=== PATIENT | male | born 1970 | race Caucasian/White ===

== ENCOUNTER 2023-02-19 07:35 | Day surgery (SDC) | payer OTHER ==
[~2023-02-19] VITALS: Ht 175.3 cm; Wt 79.4 kg
[2023-02-19] MEDS ORDERED: ONDANSETRON 4 MG/2 ML VIAL ONE (08:00)
[2023-02-19] MEDS ORDERED: PROPOFOL 200 MG/20 ML VIAL IV ONE (08:00)
[2023-02-19] MEDS ORDERED: MIDAZOLAM 2 MG/2 ML VIAL ONE ×2 (08:00→08:51)
[2023-02-19] MEDS ORDERED: METOCLOPRAMIDE 10 MG/2 ML INJ VIAL ONE (08:00)
[2023-02-19] MEDS ORDERED: fentaNYL citrate 0.05 MG/ML - 50mL vial IV ONE (08:00)
[2023-02-19 08:26] LABS: BASOPHILS % (AUTO) 0.6 % (0.0-2.0); EOSINOPHILS # (AUTO) 0.4 K/uL (0-0.4); EOSINOPHILS % (AUTO) 9.3 % (0.0-4.0); HEMATOCRIT 41.2 % (36-52); HEMOGLOBIN 14.1 g/dL (12.0-18.0); LYMPHOCYTES # (AUTO) 1.1 K/uL (2.0-11.5); LYMPHOCYTES % (AUTO) 26.8 % (20.5-51.1); MEAN CORPUSCULAR HEMOGLOBIN 32 pg (27-31); MEAN CORPUSCULAR HGB CONC 34 g/dL (33-37); MEAN CORPUSCULAR VOLUME 93.2 fL (80-94); MONOCYTES # (AUTO) 0.5 K/uL (0.8-1.0); MONOCYTES % (AUTO) 10.8 % (1.7-9.3); NEUTROPHILS # (AUTO) 2.2 K/uL (1.8-7.7); NEUTROPHILS % (AUTO) 52.5 % (42.2-75.2); PLATELET COUNT (AUTO) 216 K/uL (140-450); RED BLOOD CELL COUNT(AUTO) 4.42 MIL/uL (4.20-6.10); RED CELL DISTRIBUTION WIDTH 12.2 % (11.6-13.7); WHITE BLOOD COUNT (AUTO) 4.2 K/uL (4.8-10.8)
[2023-02-19 08:45] LABS: ALBUMIN 3.9 g/dL (3.4-5.0); ANION GAP 10.3 (8-16); CARBON DIOXIDE 28.9 mmol/L (21-32); CREATININE 0.9 mg/dL (0.6-1.3); POTASSIUM 4.2 mmol/L (3.5-5.1); TOTAL BILIRUBIN 0.4 mg/dL (0.0-1.0); TOTAL PROTEIN, SERUM 6.7 g/dL (6.4-8.2)
[2023-02-19] MEDS ORDERED: fentaNYL citrate 0.05 MG/ML VIAL ONE (08:51)
[2023-02-19] MEDS ORDERED: LACTATED RINGERS 1,000 ML IV SCH (09:20)
[2023-02-19] MEDS ORDERED: diphenhydrAMINE 50 MG/ML VIAL IVP PRN (09:20)
== END 2023-02-19 10:15 | disposition home or self-care (01) ==
LOC: MMU 07:35 → MDS 07:35
PROVIDERS: ATTEND Internal Medicine Gastroenterology
DX: R10.13 Epigastric pain (principal); R13.10 Dysphagia, unspecified; K21.9 Gastro-esophageal reflux disease without esophagitis; M10.9 Gout, unspecified; Z87.891 Personal history of nicotine dependence; Z86.010 Personal history of colon polyps; Z80.3 Family history of malignant neoplasm of breast; Z80.8 Family history of malignant neoplasm of other organs or systems
CPT/HCPCS: 36415; 43239; 71045; 80053; 85025; 93005; J2250; J3010; J2405; J2704; J2765